=== PATIENT | male | born 2000 | race American Indian/Alaskan Native ===

== ENCOUNTER 2024-05-11 23:16 | Emergency (ER) | payer BC ==
[2024-05-12] MEDS: Clindamycin Palmitate Solution 75 MG/5 ML 100 ML Bottle PO STA (00:07)
[2024-05-12] MEDS: Clindamycin HCl 150 MG Cap PO STA (00:18)
[2024-05-12] MEDS: Acetaminophen/oxyCODONE 325-10 MG Tab PO ONE (00:18)
== END 2024-05-12 00:20 | disposition home or self-care (01) ==
LOC: MW.ED 23:16
DX: K08.89 Other specified disorders of teeth and supporting structures (principal); Z79.899 Other long term (current) drug therapy
CPT/HCPCS: 99282; A9270

== ENCOUNTER 2024-05-31 08:48 | Emergency (ER) | payer BC ==
[2024-05-31] MEDS: Sodium Chloride 0.9% 1,000 ML IV ONE (08:53)
[2024-05-31] MEDS: droPERidol 2.5 MG/ML SDV IVPUSH ONE (08:55)
[2024-05-31] MEDS ORDERED: droPERidol 2.5 MG/ML SDV IVPUSH PRN (08:56)
[2024-05-31 09:02] LABS: BASOPHILS ABSOLUTE AUTO 0.05 K/uL (0.00-0.20); BASOPHILS PERCENT AUTO 0.8 % (0.0-1.0); EOSINOPHILS ABSOLUTE AUTO 0.22 K/uL (0.00-0.45); EOSINOPHILS PERCENT AUTO 3.3 % (0.0-6.0); HEMATOCRIT 45.1 % (42.0-52.0); HEMOGLOBIN 15.6 g/dL (14.0-18.0); IMMATURE GRAN ABSOLUTE AUTO 0.01 K/uL (0.00-0.05); IMMATURE GRAN PERCENT AUTO 0.2 % (0.0-0.4); LYMPHOCYTES ABSOLUTE AUTO 1.98 K/uL (1.00-4.80); LYMPHOCYTES PERCENT AUTO 29.7 % (24.0-44.0); MEAN CORPUSCULAR HEMOGLOBIN 30.2 pg (28.0-32.0); MEAN CORPUSCULAR HGB CONC 34.6 g/dL (32.0-36.0); MEAN CORPUSCULAR VOLUME 87.4 fL (83.0-99.0); MEAN PLATELET VOLUME 9.2 fL (9.4-12.4); MONOCYTES ABSOLUTE AUTO 0.42 K/uL (0.00-0.80); MONOCYTES PERCENT AUTO 6.3 % (0.0-8.0); NEUTROPHILS ABSOLUTE AUTO 3.98 K/uL (1.80-7.70); NEUTROPHILS PERCENT AUTO 59.7 % (41.0-71.0); PLATELET COUNT,PLT 198 K/uL (150-400); RED BLOOD CELL COUNT 5.16 M/uL (4.52-5.90); WHITE BLOOD CELL COUNT,WBC 6.66 K/uL (3.9-11.3)
[2024-05-31] MEDS: Pantoprazole 40 MG in Sodium Chloride 0.9% 10 ML IVPUSH ONE (09:07)
[2024-05-31 09:15] LABS: INR 1.03 (0.86-1.11)
[2024-05-31 09:24] LABS: A/G RATIO 1.4 (0.9-1.6); ALBUMIN 4.4 g/dL (3.4-5.0); BILIRUBIN TOTAL 1.1 mg/dL (0.2-1.0); CALCIUM 8.8 mg/dL (8.5-10.1); CARBON DIOXIDE,CO2 25.4 mmol/L (21.0-32.0); CREATININE 1.1 mg/dL (0.8-1.3); EST CRCL DRUG DOSING (CG) 96.81 mL/min; POTASSIUM,K 3.7 mmol/L (3.5-5.1); PROTEIN TOTAL,TP 7.5 g/dL (6.4-8.2)
[2024-05-31] MEDS: Iopamidol 755 MG/ML 500 ML Multipack Bottle IVPUSH STA (09:37)
[2024-05-31 10:38] LABS: APPEARANCE,URINE CLEAR; BILIRUBIN,URINE NEGATIVE (NEGATIVE); COLOR,URINE YELLOW; GLUCOSE,URINE NEGATIVE (NEGATIVE); KETONES,URINE NEGATIVE (NEGATIVE); LEUKOCYTE ESTERASE,URINE NEGATIVE (NEGATIVE); NITRITE,URINE NEGATIVE (NEGATIVE); OCCULT BLOOD,URINE NEGATIVE (NEGATIVE); PH,URINE 5.5 (5.0-8.0); PROTEIN,URINE NEGATIVE (NEGATIVE); UROBILINOGEN,URINE 0.2 EU/dL (<2.0)
== END 2024-05-31 10:51 | disposition home or self-care (01) ==
LOC: MW.ED 08:48
DX: R10.11 Right upper quadrant pain (principal); M84.859 Other disorders of continuity of bone, unspecified pelvic region and thigh; Z90.49 Acquired absence of other specified parts of digestive tract
CPT/HCPCS: 36415; 74177; 80053; 81003; 83605; 83690; 85025; 85610; 96361; 96374; 96375; 99285; J1790; J2470; J7030; Q9967; 99283